=== PATIENT | female | born 1940 | race Caucasian/White ===

== ENCOUNTER 2021-09-22 14:50 | Inpatient (IN) ==
[2021-09-25] MEDS ORDERED: Acetaminophen 325 MG TABLET PO PRN (14:04)
[2021-09-25] MEDS ORDERED: Ergocalciferol (VIT D2) 50,000 UNIT (1.25MG) CAP PO SCH (14:15)
[2021-09-25] MEDS: *HR* Rivaroxaban 10 MG TABLET PO SCH (18:30)
[2021-09-25] MEDS: *HR* OxyCODONE Immed Rel 5 MG TABLET PO PRN (18:30)
[2021-09-25] MEDS: Gabapentin 300 MG CAPSULE PO SCH (20:11)
[2021-09-25] MEDS: Aspirin Enteric Coated 81 MG Tablet PO SCH (20:11)
[2021-09-26] MEDS: *HR* OxyCODONE Immed Rel 5 MG TABLET PO PRN ×3 (04:41→17:53)
[2021-09-26] MEDS: CELECOXIB 50 MG PO SCH (08:02)
[2021-09-26 08:07] LABS: Basophils % 0.5 %; Eosinophils # 0.2 K/mcL (0.0-0.6); Eosinophils % 3.7 %; Hemoglobin 8.1 g/dL (11.5-15.4); Immature Granulocytes % 0.5 % (0-4); Lymphocytes % 15.8 %; Mean Corpuscular HGB Conc 32.4 g/dL (31.6-35.5); Mean Corpuscular Hemoglobin 31.2 pg (28.0-33.3); Mean Corpuscular Volume 96.2 fL (83.0-100.0); Mean Platelet Volume 10.9 fL (9.4-12.4); Monocytes # 0.5 K/mcL (0.0-1.3); Monocytes % 8.5 %; Neutrophils # 4.4 K/mcL (1.6-8.9); Platelet Count 163 K/mcL (140-400); Red Cell Distribution Width 14.1 % (11.5-14.5); White Blood Count 6.3 K/mcL (4.3-11.1)
[2021-09-26] MEDS: Gabapentin 100 MG CAPSULE PO SCH (08:12)
[2021-09-26] MEDS: Aspirin Enteric Coated 81 MG Tablet PO SCH ×2 (08:12→20:51)
[2021-09-26 08:19] LABS: BUN/Creatinine Ratio 29 (6-26); Blood Urea Nitrogen 25 mg/dL (8-23); Calcium 8.5 mg/dL (8.6-10.3); Carbon Dioxide 25 mEq/L (23-29); Chloride 107 mEq/L (98-107); Glucose 105 mg/dL (70-105); Osmolality,Calculated 293 (280-300); Potassium 4.5 mEq/L (3.5-5.1); Sodium 139 mEq/L (136-145); eGFR For African Americans > 60 (> 60); eGFR For Non-African Americans > 60 (> 60)
[2021-09-26] MEDS: *HR* Rivaroxaban 10 MG TABLET PO SCH (17:53)
[2021-09-26] MEDS: *HR* LORazepam 1 MG TABLET PO PRN (20:52)
[2021-09-26] MEDS: Gabapentin 300 MG CAPSULE PO SCH (20:53)
[2021-09-27] MEDS: CELECOXIB 50 MG PO SCH (08:54)
[2021-09-27] MEDS: Aspirin Enteric Coated 81 MG Tablet PO SCH (08:54)
[2021-09-27] MEDS: *HR* LORazepam 1 MG TABLET PO PRN (08:58)
[2021-09-27] MEDS: Gabapentin 100 MG CAPSULE PO SCH (08:58)
[2021-09-27] MEDS ORDERED: Sennosides/Docusate Sodium TABLET PO PRN (12:32)
[2021-09-27] MEDS: polyethylene glycoL 3350 17 GM POWD.PACK PO SCH (12:36)
[2021-09-27] MEDS: Metoprolol XL (24 HR) Succ 50 MG TAB.ER.24H PO SCH (12:36)
[2021-09-27 13:24] LABS: Bilirubin,Urine Negative (Negative); Blood,Urine Trace-lysed (Negative); Clarity,Urine Clear (Clear); Color,Urine Yellow (Yellow); Glucose,Urine (UA) Normal (Normal); Ketones,Urine Negative (Negative); Leukocyte Esterase,Urine Negative (Negative); Nitrite,Urine Negative (Negative); PH,Urine 5.5 pH Units (5.0-8.0); Protein,Urine Negative (Neg-Trace); Specific Gravity,Urine 1.015 (1.010-1.025); Urobilinogen,Urine Normal (Normal)
[2021-09-27 13:26] LABS: RBC,Urine 0-3 per hpf (0-3); WBC,Urine 0-3 per hpf (0-3)
[2021-09-27] MEDS: *HR* Rivaroxaban 10 MG TABLET PO SCH (16:07)
[2021-09-27] MEDS: *HR* LORazepam 1 MG TABLET PO SCH (20:42)
[2021-09-27] MEDS: Gabapentin 300 MG CAPSULE PO SCH (20:42)
[2021-09-27] MEDS: methocarbamoL 500 MG TABLET PO SCH (20:45)
[2021-09-28] MEDS ORDERED: Ergocalciferol (VIT D2) 50,000 UNIT (1.25MG) CAP PO SCH (07:30)
[2021-09-28] MEDS: methocarbamoL 500 MG TABLET PO SCH ×3 (07:35→21:47)
[2021-09-28] MEDS: *HR* LORazepam 1 MG TABLET PO SCH ×2 (08:03→21:48)
[2021-09-28] MEDS: polyethylene glycoL 3350 17 GM POWD.PACK PO SCH (08:03)
[2021-09-28] MEDS: Metoprolol XL (24 HR) Succ 50 MG TAB.ER.24H PO SCH (08:03)
[2021-09-28] MEDS: CELECOXIB 50 MG PO SCH (08:04)
[2021-09-28] MEDS: Gabapentin 100 MG CAPSULE PO SCH (08:04)
[2021-09-28] MEDS: *HR* Rivaroxaban 10 MG TABLET PO SCH (16:17)
[2021-09-28] MEDS ORDERED: Melatonin 3 MG TABLET PO SCH (21:00)
[2021-09-28] MEDS: Gabapentin 300 MG CAPSULE PO SCH (21:47)
[2021-09-29 05:59] LABS: Hematocrit 22.1 % (35.3-44.9); Mean Corpuscular HGB Conc 31.7 g/dL (31.6-35.5); Mean Corpuscular Hemoglobin 30.6 pg (28.0-33.3); Mean Corpuscular Volume 96.5 fL (83.0-100.0); Mean Platelet Volume 10.5 fL (9.4-12.4); Platelet Count 212 K/mcL (140-400); Red Blood Count 2.29 M/mcL (3.82-4.97); Red Cell Distribution Width 14.2 % (11.5-14.5); White Blood Count 5.8 K/mcL (4.3-11.1)
[2021-09-29 06:45] VITALS: BP 109/72; PULSE 72; RESP 13; TEMP 98; O2SAT 94
[2021-09-29 08:01] LABS: % Iron Saturation 14 % (15-50); Iron 37 mcg/dL (50-170); Transferrin 190 mg/dL (203-362)
[2021-09-29] MEDS: Metoprolol XL (24 HR) Succ 50 MG TAB.ER.24H PO SCH (08:11)
[2021-09-29] MEDS: Gabapentin 100 MG CAPSULE PO SCH (08:11)
[2021-09-29] MEDS: *HR* LORazepam 1 MG TABLET PO SCH (08:12)
[2021-09-29] MEDS: methocarbamoL 500 MG TABLET PO SCH (08:12)
[2021-09-29] MEDS: polyethylene glycoL 3350 17 GM POWD.PACK PO SCH (08:13)
[2021-09-29] MEDS: *HR* OxyCODONE Immed Rel 5 MG TABLET PO PRN (08:14)
[2021-09-29 08:45] LABS: Sodium 142 mEq/L (136-145)
[2021-09-29 08:46] LABS: BUN/Creatinine Ratio 22 (6-26); Blood Urea Nitrogen 19 mg/dL (8-23); Calcium 8.3 mg/dL (8.6-10.3); Carbon Dioxide 24 mEq/L (23-29); Chloride 107 mEq/L (98-107); Glucose 105 mg/dL (70-105); Magnesium 2.3 mg/dL (1.6-2.6); Osmolality,Calculated 297 (280-300); Potassium 4.3 mEq/L (3.5-5.1); eGFR For African Americans > 60 (> 60); eGFR For Non-African Americans > 60 (> 60)
[2021-09-29] MEDS: CELECOXIB 50 MG PO SCH (09:51)
== END 2021-09-29 15:10 | DRG 560 ==
LOC: INPGRE 09-25 16:14
PROVIDERS: ADMIT Family Medicine; ATTEND Family Medicine